=== PATIENT | male | born 1930 | race Asian ===

== ENCOUNTER 2018-06-25 00:37 | Emergency (ER) | payer MEDICARE, OTHER ==
[~2018-06-25] VITALS: Ht 172.7 cm; Wt 81.8 kg
[~2018-06-25 00:37] MED LIST: ASPI81 PO; ATOR20TA86 PO; NIFE60TA71 PO; OFLO35OS OD; PREDAOS OD
[2018-06-25] MEDS ORDERED: LATA7.5D OD (00:59)
[2018-06-25 01:04] LABS: GLUCOSE,POINT OF CARE 111 MG/DL (70-110)
[2018-06-25 03:04] LABS: BASOPHILS % (AUTO) 2.9 % (0.0-2.0); EOSINOPHILS % (AUTO) 1.1 % (1.0-6.0); HEMOGLOBIN 11.3 g/dL (13.5-17.5); LYMPHOCYTES # (AUTO) 1.5 K/uL (1.0-4.8); LYMPHOCYTES % (AUTO) 26.4 % (22.0-44.0); MEAN CORPUSCULAR HEMOGLOBIN 35.2 pg (26.0-34.0); MEAN CORPUSCULAR HGB CONC 34.3 G/dL (31.0-37.0); MEAN CORPUSCULAR VOLUME 103 fL (80-100); MONOCYTES # (AUTO) 0.7 K/uL (0.1-1.0); MONOCYTES % (AUTO) 12.1 % (2.0-9.0); NEUTROPHILS # (AUTO) 3.3 K/uL (1.8-7.7); NEUTROPHILS % (AUTO) 57.5 % (40.0-70.0); PLATELET COUNT (AUTO) 151 K/uL (150-450); RED BLOOD CELL COUNT(AUTO) 3.22 MIL/uL (4.50-5.90); RED CELL DISTRIBUTION WIDTH 23.2 % (11.5-14.5)
[2018-06-25 03:14] LABS: CALCIUM, TOTAL 8.8 mg/dL (8.8-10.5); CREATININE 1.52 mg/dL (0.60-1.30); POTASSIUM 4.3 mmol/L (3.5-5.1)
[2018-06-25 03:20] LABS: ALBUMIN 3.9 g/dL (3.4-5.0); TOTAL PROTEIN, SERUM 7.8 g/dL (6.4-8.2)
[2018-06-25] MEDS ORDERED: ASPIRIN 81 MG CHEWABLE TABLET PO ONE (04:30)
[2018-06-25 04:52] VITALS: BP 124/75
== END 2018-06-25 04:56 | disposition home or self-care (01) ==
LOC: EMS 00:38
DX: G45.9 Transient cerebral ischemic attack, unspecified (principal); I48.91 Unspecified atrial fibrillation; N28.9 Disorder of kidney and ureter, unspecified; I10 Essential (primary) hypertension; Z86.73 Personal history of transient ischemic attack (TIA), and cerebral infarction without residual deficits
CPT/HCPCS: 70450; 93005; 99285

== ENCOUNTER 2019-01-30 10:25 | Emergency (ER) | payer MEDICARE, OTHER ==
[~2019-01-30] VITALS: Ht 172.7 cm; Wt 81.8 kg
[~2019-01-30 10:25] MED LIST changes: -ASPI81 PO; -ATOR20TA86 PO; +LATA7.5D OD; -OFLO35OS OD; -PREDAOS OD
[2019-01-30] MEDS ORDERED: ALLO100T PO (10:48)
[2019-01-30 11:38] LABS: CALCIUM, TOTAL 9.2 mg/dL (8.8-10.5); CREATININE 1.29 mg/dL (0.60-1.30); POTASSIUM 4.3 mmol/L (3.5-5.1)
[2019-01-30 11:40] LABS: BASOPHILS % (AUTO) 1.1 % (0.0-2.0); EOSINOPHILS % (AUTO) 0 % (1.0-6.0); HEMATOCRIT 29.3 % (41-53); HEMOGLOBIN 9.8 g/dL (13.5-17.5); LYMPHOCYTES % (AUTO) 9.1 % (22.0-44.0); MEAN CORPUSCULAR HEMOGLOBIN 33.2 pg (26.0-34.0); MEAN CORPUSCULAR HGB CONC 33.3 G/dL (31.0-37.0); MEAN CORPUSCULAR VOLUME 100 fL (80-100); MONOCYTES # (AUTO) 1.8 K/uL (0.1-1.0); MONOCYTES % (AUTO) 16.5 % (2.0-9.0); NEUTROPHILS # (AUTO) 7.9 K/uL (1.8-7.7); NEUTROPHILS % (AUTO) 73.3 % (40.0-70.0); PLATELET COUNT (AUTO) 152 K/uL (150-450); RED BLOOD CELL COUNT(AUTO) 2.94 MIL/uL (4.50-5.90); RED CELL DISTRIBUTION WIDTH 24.5 % (11.5-14.5)
[2019-01-30 11:45] LABS: ALBUMIN 3.8 g/dL (3.4-5.0); BILIRUBIN,TOTAL 1.9 mg/dL (0.1-1.0); TOTAL PROTEIN, SERUM 7.8 g/dL (6.4-8.2)
[2019-01-30 13:11] LABS: APPEARANCE,URINE CLEAR (CLEAR); BILIRUBIN,URINE NEGATIVE (NEGATIVE); GLUCOSE, URINE (UA) NEGATIVE (NEGATIVE); KETONES,URINE NEGATIVE (NEGATIVE); LEUKOCYTE ESTERASE ,URINE NEGATIVE (NEGATIVE); NITRATE,URINE NEGATIVE (NEGATIVE); OCCULT BLOOD,URINE NEGATIVE (NEGATIVE); PROTEIN,URINE TRACE (NEGATIVE); UROBILINOGEN,URINE 0.2 mg/dL (<=1.0)
[2019-01-30 13:26] LABS: BACTERIA,URINE Rare /HPF (None Seen); RBC,URINE 0-2 /HPF (0-2); SQUAMOUS EPITHELIAL CELL,UR Rare /LPF (None Seen); WBC,URINE None Seen /HPF (0-5)
[2019-01-30 15:39] VITALS: BP 122/79
== END 2019-01-30 16:27 | disposition home or self-care (01) ==
LOC: EMS 10:26
DX: I48.91 Unspecified atrial fibrillation (principal); M10.9 Gout, unspecified; D64.9 Anemia, unspecified; I10 Essential (primary) hypertension; Z86.73 Personal history of transient ischemic attack (TIA), and cerebral infarction without residual deficits; Z85.46 Personal history of malignant neoplasm of prostate; Z79.899 Other long term (current) drug therapy; Z91.013 Allergy to seafood; W19.XXXA Unspecified fall, initial encounter; Y93.01 Activity, walking, marching and hiking; Y92.89 Other specified places as the place of occurrence of the external cause; Y99.8 Other external cause status
CPT/HCPCS: 70450; 72170; 93005

== ENCOUNTER 2019-12-06 15:18 | Inpatient (IN) | payer MEDICARE, OTHER ==
[~2019-12-06] VITALS: Ht 170.2 cm; Wt 76.4 kg
[~2019-12-06 15:18] MED LIST changes: +ALLO100T PO; +NIFE-46 PO; -NIFE60TA71 PO
[2019-12-06] MEDS ORDERED: IOVERSOL 320 MG/ML 100 ML VIAL ONE (15:26)
[2019-12-06] MEDS ORDERED: SODIUM CHLORIDE 0.9% 100 ML ONE (15:26)
[2019-12-06 15:29] LABS: HEMATOCRIT 30.4 % (41-53); HEMOGLOBIN 10.1 g/dL (13.5-17.5); MEAN CORPUSCULAR HEMOGLOBIN 35.9 pg (26.0-34.0); MEAN CORPUSCULAR HGB CONC 33.4 G/dL (31.0-37.0); MEAN CORPUSCULAR VOLUME 108 fL (80-100); PLATELET COUNT (AUTO) 157 K/uL (150-450); RED BLOOD CELL COUNT(AUTO) 2.82 MIL/uL (4.50-5.90); RED CELL DISTRIBUTION WIDTH 24.9 % (11.5-14.5)
[2019-12-06 15:44] LABS: INR 1.1 (0.9-1.1); PROTHROMBIN TIME 11.4 SEC (9.4-11.6)
[2019-12-06] MEDS ORDERED: DORZ210OS OU (15:45)
[2019-12-06] MEDS ORDERED: FERR325T24 PO (15:45)
[2019-12-06] MEDS ORDERED: LEVO50 PO (15:45)
[2019-12-06] MEDS ORDERED: MULT1CAP32 PO (15:45)
[2019-12-06] MEDS ORDERED: ASPI-728 PO (15:45)
[2019-12-06] MEDS ORDERED: NETA2.5D3 OU (15:45)
[2019-12-06] MEDS ORDERED: DOCU-342 PO (15:45)
[2019-12-06] MEDS ORDERED: AMLO10TA7 PO (15:45)
[2019-12-06 15:46] LABS: CREATININE 1.55 mg/dL (0.60-1.30); POTASSIUM 4.4 mmol/L (3.5-5.1)
[2019-12-06 15:57] LABS: BAND NEUTROPHILS % (MANUAL) 9 % (0-5); BASOPHILS % (MANUAL) 1 % (0-2); EOSINOPHILS % (MANUAL) 1 % (1-6); LYMPHOCYTES % (MANUAL) 26 % (22-44); MONOCYTES % (MANUAL) 11 % (2-9); PLATELET MORPHOLOGY COMMENT GIANT PLTS PRESENT; SEGMENTED NEUTROPHILS % 52 % (40-70)
[2019-12-06 15:59] LABS: TOTAL PROTEIN, SERUM 7.5 g/dL (6.4-8.2)
[2019-12-06] MEDS ORDERED: ASPIRIN 325 MG TABLET PO ONE (16:30)
[2019-12-06] MEDS ORDERED: ASPIRIN 300 MG RECTAL SUPPOSITORY PR ONE (17:00)
[2019-12-06] MEDS ORDERED: ONDANSETRON HCL 4 MG/2 ML VIAL IVP PRN (17:15)
[2019-12-06] MEDS ORDERED: 0.9% SODIUM CHLORIDE 10 ML SYRINGE IVP PRN (17:15)
[2019-12-06] MEDS ORDERED: ACETAMINOPHEN 325 MG TABLET PO PRN ×2 (17:15→17:45)
[2019-12-06] MEDS ORDERED: BISACODYL 10 MG RECTAL RECTAL SUPPOSITORY PR PRN (17:45)
[2019-12-06 17:53] LABS: APPEARANCE,URINE CLEAR (CLEAR); BILIRUBIN,URINE NEGATIVE (NEGATIVE); GLUCOSE, URINE (UA) NEGATIVE (NEGATIVE); KETONES,URINE NEGATIVE (NEGATIVE); LEUKOCYTE ESTERASE ,URINE NEGATIVE (NEGATIVE); NITRATE,URINE NEGATIVE (NEGATIVE); OCCULT BLOOD,URINE LARGE (NEGATIVE); PROTEIN,URINE NEGATIVE (NEGATIVE)
[2019-12-06 17:58] LABS: AMPHET/METH SCREEN,URINE NEGATIVE (NEGATIVE); BARBITURATE SCREEN, URINE NEGATIVE (NEGATIVE); BENZODIAZEPINES SCREEN,URINE NEGATIVE (NEGATIVE); CANNABINOID SCREEN,URINE NEGATIVE (NEGATIVE); COCAINE SCREEN,URINE NEGATIVE (NEGATIVE); METHADONE SCREEN, URINE NEGATIVE (NEGATIVE); OPIATE SCREEN,URINE NEGATIVE (NEGATIVE)
[2019-12-06 17:59] LABS: PHENCYCLIDINE SCREEN,URINE NEGATIVE (NEGATIVE)
[2019-12-06 18:04] LABS: BACTERIA,URINE Rare /HPF (None Seen); RBC,URINE 26-50 /HPF (0-2); SQUAMOUS EPITHELIAL CELL,UR Rare /LPF (None Seen); WBC,URINE 0-2 /HPF (0-5)
[2019-12-06 18:25] VITALS: BP 140/53
[2019-12-06 19:35] VITALS: BP 157/79
[2019-12-06] MEDS ORDERED: PNEUMOCOCCAL VACCINE POLYVALENT 0.5 ML VIAL [PPSV23] IM ONE (21:30)
[2019-12-06] MEDS: DOCUSATE SODIUM 100 MG CAPSULE PO SCH (21:57)
[2019-12-06] MEDS: ATORVASTATIN CALCIUM 40 MG TABLET PO SCH (21:57)
[2019-12-06 23:45] VITALS: BP 153/86
[2019-12-07] MEDS: HEPARIN SODIUM,PORCINE 5,000 UNITS/ML VIAL SQ SCH ×3 (01:25→18:03)
[2019-12-07 02:24] VITALS: BP 140/66
[2019-12-07 05:29] VITALS: BP 136/73
[2019-12-07 06:39] LABS: BASOPHILS % (AUTO) 3.5 % (0.0-2.0); EOSINOPHILS % (AUTO) 1.6 % (1.0-6.0); HEMATOCRIT 27.2 % (41-53); HEMOGLOBIN 9.4 g/dL (13.5-17.5); LYMPHOCYTES # (AUTO) 1.4 K/uL (1.0-4.8); LYMPHOCYTES % (AUTO) 24.6 % (22.0-44.0); MEAN CORPUSCULAR HEMOGLOBIN 36.8 pg (26.0-34.0); MEAN CORPUSCULAR HGB CONC 34.4 G/dL (31.0-37.0); MEAN CORPUSCULAR VOLUME 107 fL (80-100); MONOCYTES # (AUTO) 0.8 K/uL (0.1-1.0); MONOCYTES % (AUTO) 14.7 % (2.0-9.0); NEUTROPHILS # (AUTO) 3.1 K/uL (1.8-7.7); NEUTROPHILS % (AUTO) 55.6 % (40.0-70.0); PLATELET COUNT (AUTO) 146 K/uL (150-450); RED BLOOD CELL COUNT(AUTO) 2.55 MIL/uL (4.50-5.90); RED CELL DISTRIBUTION WIDTH 24.7 % (11.5-14.5)
[2019-12-07 06:49] LABS: ALBUMIN 3.4 g/dL (3.4-5.0); CALCIUM, TOTAL 8.7 mg/dL (8.8-10.5); CREATININE 1.33 mg/dL (0.60-1.30); POTASSIUM 3.8 mmol/L (3.5-5.1); TOTAL PROTEIN, SERUM 6.7 g/dL (6.4-8.2)
[2019-12-07 07:47] VITALS: BP 152/77
[2019-12-07] MEDS: DOCUSATE SODIUM 100 MG CAPSULE PO SCH ×2 (10:03→21:00)
[2019-12-07] MEDS: ATORVASTATIN CALCIUM 40 MG TABLET PO SCH (10:03)
[2019-12-07] MEDS: ASPIRIN 325 MG TABLET PO SCH (10:04)
[2019-12-07 11:27] VITALS: BP 155/94
[2019-12-07 14:42] LABS: HEMOGLOBIN A1C 6.3 % (4.5-6.2)
[2019-12-07 14:58] LABS: THYROID STIMULATING HORMONE 1.64 uIU/mL (0.36-3.74)
[2019-12-07 15:47] VITALS: BP 142/85
[2019-12-07 20:13] VITALS: BP 156/75
[2019-12-07] MEDS ORDERED: IOVERSOL 350 MG/ML 100 ML VIAL ONE (22:34)
[2019-12-07] MEDS ORDERED: SODIUM CHLORIDE 0.9% 100 ML ONE (22:34)
[2019-12-08 00:12] VITALS: BP 144/79
[2019-12-08] MEDS: HEPARIN SODIUM,PORCINE 5,000 UNITS/ML VIAL SQ SCH ×4 (01:34→23:46)
[2019-12-08 04:29] VITALS: BP 150/80
[2019-12-08 08:18] VITALS: BP 144/74
[2019-12-08] MEDS: DOCUSATE SODIUM 100 MG CAPSULE PO SCH ×2 (08:55→21:09)
[2019-12-08] MEDS: ATORVASTATIN CALCIUM 40 MG TABLET PO SCH (08:55)
[2019-12-08] MEDS: ASPIRIN 325 MG TABLET PO SCH (08:56)
[2019-12-08 11:55] VITALS: BP 149/88
[2019-12-08 16:52] VITALS: BP 151/81
[2019-12-08 20:28] VITALS: BP 154/87
[2019-12-09 00:01] VITALS: BP 155/89
[2019-12-09 05:30] VITALS: BP 157/98
[2019-12-09] MEDS: LEVOTHYROXINE SODIUM 50 MCG TABLET PO SCH (06:17)
[2019-12-09 07:40] VITALS: BP 142/77
[2019-12-09] MEDS: ATORVASTATIN CALCIUM 40 MG TABLET PO SCH (08:21)
[2019-12-09] MEDS: DOCUSATE SODIUM 100 MG CAPSULE PO SCH ×2 (08:21→21:05)
[2019-12-09] MEDS: ASPIRIN 325 MG TABLET PO SCH (08:21)
[2019-12-09] MEDS: HEPARIN SODIUM,PORCINE 5,000 UNITS/ML VIAL SQ SCH ×2 (08:21→16:00)
[2019-12-09] MEDS: ALLOPURINOL 100 MG TABLET PO SCH (08:22)
[2019-12-09 11:21] VITALS: BP 115/65
[2019-12-09] MEDS ORDERED: APIX5TAB PO (12:36)
[2019-12-09] MEDS ORDERED: ALLO100T PO (12:36)
[2019-12-09] MEDS ORDERED: ASPI-1026 PO (12:36)
[2019-12-09] MEDS ORDERED: ATOR40TA71 PO (12:36)
[2019-12-09 15:48] VITALS: BP 134/70
[2019-12-09 20:10] VITALS: BP 162/80
[2019-12-10 00:08] VITALS: BP 166/84
[2019-12-10 04:13] VITALS: BP 157/84
[2019-12-10] MEDS: LEVOTHYROXINE SODIUM 50 MCG TABLET PO SCH (06:21)
[2019-12-10 06:55] LABS: BASOPHILS % (AUTO) 1.1 % (0.0-2.0); EOSINOPHILS % (AUTO) 0.3 % (1.0-6.0); HEMATOCRIT 30.1 % (41-53); LYMPHOCYTES # (AUTO) 1.1 K/uL (1.0-4.8); LYMPHOCYTES % (AUTO) 11.7 % (22.0-44.0); MEAN CORPUSCULAR HEMOGLOBIN 35.9 pg (26.0-34.0); MEAN CORPUSCULAR HGB CONC 33.4 G/dL (31.0-37.0); MEAN CORPUSCULAR VOLUME 107 fL (80-100); MONOCYTES # (AUTO) 1.6 K/uL (0.1-1.0); MONOCYTES % (AUTO) 17.1 % (2.0-9.0); NEUTROPHILS # (AUTO) 6.3 K/uL (1.8-7.7); NEUTROPHILS % (AUTO) 69.8 % (40.0-70.0); PLATELET COUNT (AUTO) 143 K/uL (150-450); RED CELL DISTRIBUTION WIDTH 24.5 % (11.5-14.5)
[2019-12-10 07:05] VITALS: BP 140/85
[2019-12-10] MEDS: HEPARIN SODIUM,PORCINE 5,000 UNITS/ML VIAL SQ SCH ×3 (08:00→15:03)
[2019-12-10] MEDS: ALLOPURINOL 100 MG TABLET PO SCH (08:06)
[2019-12-10] MEDS: ATORVASTATIN CALCIUM 40 MG TABLET PO SCH (08:06)
[2019-12-10] MEDS: ASPIRIN 325 MG TABLET PO SCH (08:07)
[2019-12-10] MEDS: DOCUSATE SODIUM 100 MG CAPSULE PO SCH (08:07)
[2019-12-10 11:17] VITALS: BP 131/61
[2019-12-10 16:08] VITALS: BP 141/70
== END 2019-12-10 18:35 | DRG 65 ==
LOC: EMS 15:20 → 5S 17:46
PROVIDERS: ADMIT Internal Medicine; ATTEND Internal Medicine
DX: I63.9 Cerebral infarction, unspecified (principal); I48.20 Chronic atrial fibrillation, unspecified; G81.94 Hemiplegia, unspecified affecting left nondominant side; I25.10 Atherosclerotic heart disease of native coronary artery without angina pectoris; E03.9 Hypothyroidism, unspecified; Z86.73 Personal history of transient ischemic attack (TIA), and cerebral infarction without residual deficits; Z82.49 Family history of ischemic heart disease and other diseases of the circulatory system; Z85.46 Personal history of malignant neoplasm of prostate; Z79.82 Long term (current) use of aspirin; M10.9 Gout, unspecified; I10 Essential (primary) hypertension; E78.5 Hyperlipidemia, unspecified
CPT/HCPCS: 70496; 83036; 84443; 86850; 86900; 86901; 90732; 92610; 93005; 93306; 97110; 97112; 97162; 97166; 97530; 97535; 99291; J1644; J7050